=== PATIENT | female | born 1945 | race Caucasian/White ===

== ENCOUNTER 2018-11-06 16:56 | Outpatient (REF) | payer MEDICARE, OTHER, SELFPAY ==
[2018-11-06 22:12] LABS: Anion Gap 9.9 mmol/L (3-11); BUN 25 mg/dL (7-18); CO2 27.1 mmol/L (21.0-32.0); CREATININE 1.18 mg/dL (0.55-1.02); Calcium 9.4 mg/dL (8.5-10.1); Chloride 103 mmol/L (98-107); Estimated GFR 45.15 (mL/min/1.73m2); Glucose 92 mg/dL (70-100); Potassium 4.1 mmol/L (3.5-5.1); Sodium 140 mmol/L (136-145)
== END 2018-11-06 17:16 ==
LOC: NCHCN 16:56
PROVIDERS: PCP Nurse Practitioner Family; Visit Provider Nurse Practitioner Family
DX: I10 Essential (primary) hypertension (principal); R73.01 Impaired fasting glucose
CPT/HCPCS: 80048; 83036

== ENCOUNTER 2020-04-28 19:23 | Outpatient (REF) | payer MEDICARE, OTHER, SELFPAY ==
[2020-04-28 20:33] LABS: BUN 23 mg/dL (7-18); CREATININE 1.13 mg/dL (0.55-1.02); Calcium 9.2 mg/dL (8.5-10.1); Chloride 104 mmol/L (98-107); Estimated GFR 47.33 (mL/min/1.73m2); Glucose 82 mg/dL (74-106); Sodium 140 mmol/L (136-145)
[2020-04-28 20:48] LABS: Hemoglobin A1C 5.9 % (3.8-5.6)
== END 2020-04-28 19:43 ==
LOC: NCHCN 19:23
PROVIDERS: PCP Nurse Practitioner Family; Visit Provider Nurse Practitioner Family
DX: R73.03 Prediabetes (principal); M79.675 Pain in left toe(s); I10 Essential (primary) hypertension; N28.9 Disorder of kidney and ureter, unspecified; E66.9 Obesity, unspecified
CPT/HCPCS: 80048; 83036; 84550

== ENCOUNTER 2020-07-06 21:40 | Outpatient (REF) | payer MEDICARE, OTHER, SELFPAY ==
[2020-07-06 20:59] LABS: ALT 30 U/L (14-59); AST 22 U/L (15-37); Albumin 3.7 g/dL (3.4-5.0); Alkaline Phosphatase 98 U/L (46-116); Anion Gap 7.3 mmol/L (3-11); BUN 21 mg/dL (7-18); Bilirubin, Total 0.7 mg/dL (0.2-1.0); CO2 29.7 mmol/L (21.0-32.0); CREATININE 1.11 mg/dL (0.55-1.02); Chloride 103 mmol/L (98-107); Estimated GFR 48.18 (mL/min/1.73m2); Glucose 127 mg/dL (74-106); Potassium 3.8 mmol/L (3.5-5.1); Sodium 140 mmol/L (136-145); Total Protein 6.9 g/dL (6.4-8.2)
[2020-07-06 21:39] LABS: ESR 12 mm/hr (0-30)
[2020-07-07 16:41] LABS: CRP, High Sensitivity 1.17 mg/L (See Note); Rheumatoid Factor <8.6 IU/mL (<12.0)
[2020-07-08 14:18] LABS: ANA Interpretation Positive (Negative); ANA Titer Pattern 1:320 Homogeneous
[2020-07-14 12:16] LABS: dsDNA Ab, IgG <12.3 IU/mL (<30.0)
== END 2020-07-06 22:00 ==
LOC: NCHCN 21:40
PROVIDERS: PCP Nurse Practitioner Community Health; Visit Provider Nurse Practitioner Community Health
DX: M85.80 Other specified disorders of bone density and structure, unspecified site (principal); M17.0 Bilateral primary osteoarthritis of knee; Z96.653 Presence of artificial knee joint, bilateral; Z96.612 Presence of left artificial shoulder joint
CPT/HCPCS: 80053; 85652; 86141; 86038; 86225; 86431